=== PATIENT | female | born 1975 | race American Indian/Alaskan Native ===

== ENCOUNTER 2017-04-28 20:49 | Emergency (ER) | payer MEDICAID ==
[2017-04-29] MEDS ORDERED: TYLENOL PO ONE (00:10)
--- NOTE | 2017-04-29 01:56 | XRay Report ---
FINAL REPORT PROCEDURE: XR FOOT 3+V LT TECHNIQUE: Left foot radiographs, AP, lateral, and oblique views. CPT 70499 HISTORY: pain and swelling L foot COMPARISON: No prior studies are available for comparison. FINDINGS: Fracture (s) and/or Dislocation(s): None . Alignment: Normal . Joint space(s): Normal . Soft tissues: There is soft tissue swelling of the forefoot.. Bone mineralization: Normal . Foreign bodies: None . Calcaneal spurring: There is a small inferior calcaneal spur per. IMPRESSION: There is no acute bony abnormality. There is a soft tissue swelling of the forefoot.
[2017-04-29] MEDS ORDERED: NORCO 10/325 PO ONE (03:50)
[2017-04-29] MEDS ORDERED: ZOFRAN ODT PO ONE (03:50)
[2017-04-29 04:21] VITALS: BP 111/41
--- NOTE | 2017-04-29 04:49 | Emergency Department Report ---
ED Lower Extremity HPI - General Chief Complaint: Extremity Injury, Lower Stated Complaint: LT FOOT PAIN Time Seen by Provider: 04/29/17 03:13 Source: patient Mode of arrival: Ambulatory Limitations: No Limitations - History of Present Illness Initial Comments: 41-year-old female past medical history obesity, hypertension presents with complaint of left toe and foot pain. Patient states she stubbed her toe very hard this afternoon. States her left great toe region has become swollen and bruised. Patient has difficulty bearing weight on left foot due to pain. Denies any other injuries. MD Complaint: foot injury (left foot injury) Onset/Timin -: days(s) Injury: Foot: Left, Toes: Left Type of Injury: blunt Place: home Severity: severe Severity scale (0 -10): 8 Worsens With: weight bearing, movement, palpation Context: direct blow, walking Associated Symptoms: able to partially bear weight - Related Data Previous Rx's Medication Instructions Recorded Last Taken Type Butalb/Acetamin/Caff 50-325-40 1 each PO Q4H PRN #10 tablet 10/29/13 Unknown Rx [Fioricet] Acetaminophen/Codeine [Tylenol 1 tab PO Q6H PRN #12 tab 04/29/17 Unknown Rx /Codeine # 3 tab] Ibuprofen [Motrin] 800 mg PO Q8HR PRN #30 tablet 04/29/17 Unknown Rx Allergies Allergy/AdvReac Type Severity Reaction Status Date / Time No Known Allergies Allergy Unverified 10/29/13 09:36 ED Review of Systems ROS: Stated complaint: LT FOOT PAIN Other details as noted in HPI Constitutional: denies: chills, fever Eyes: denies: eye pain, eye discharge, vision change ENT: denies: ear pain, throat pain Respiratory: denies: cough, shortness of breath, wheezing Cardiovascular: denies: chest pain, palpitations Endocrine: no symptoms reported Gastrointestinal: denies: abdominal pain, nausea, diarrhea Genitourinary: denies: urgency, dysuria, discharge Musculoskeletal: as per HPI (left foot and left great toe pain). denies: back pain, joint swelling, arthralgia Skin: denies: rash, lesions Neurological: denies: headache, weakness, paresthesias Psychiatric: denies: anxiety, depression Hematological/Lymphatic: denies: easy bleeding, easy bruising ED Past Medical Hx - Past Medical History Previous Medical History?: Yes Hx Hypertension: Yes Additional medical history: hyperthyroid - Surgical History Past Surgical History?: Yes Additional Surgical History: hysterectomy- partial. x 3. thyroidectomy - Social History Smoking Status: Never Smoker Substance Use Type: None - Medications Home Medications: Home Medications Medication Instructions Recorded Confirmed Last Taken Type Butalb/Acetamin/Caff 50-325-40 1 each PO Q4H PRN #10 tablet 10/29/13 Unknown Rx [Fioricet] Acetaminophen/Codeine [Tylenol 1 tab PO Q6H PRN #12 tab 04/29/17 Unknown Rx /Codeine # 3 tab] Ibuprofen [Motrin] 800 mg PO Q8HR PRN #30 tablet 04/29/17 Unknown Rx ED Physical Exam - General Limitations: No Limitations General appearance: alert, in no apparent distress - Head Head exam: Present: atraumatic, normocephalic - Eye Eye exam: Present: normal appearance, PERRL, EOMI - ENT ENT exam: Present: mucous membranes moist - Neck Neck exam: Present: normal inspection - Respiratory Respiratory exam: Present: normal lung sounds bilaterally. Absent: respiratory distress - Cardiovascular Cardiovascular Exam: Present: regular rate, normal rhythm. Absent: systolic murmur, diastolic murmur, rubs, gallop - GI/Abdominal GI/Abdominal exam: Present: soft, normal bowel sounds - Extremities Exam Extremities exam: Present: normal inspection - Expanded Lower Extremity Exam Left Hip exam: Present: normal inspection, full ROM Upper Leg exam: Present: normal inspection, full ROM Knee exam: Present: normal inspection, full ROM Lower Leg exam: Present: normal inspection, full ROM Ankle exam: Present: normal inspection, full ROM Foot/Toe exam: Present: tenderness (tenderness at base of first metatarsal), swelling, ecchymosis Neuro vascular tendon exam: Present: no vascular compromise (distal dorsalis pedis and posterior tibial pulses strong to palpation) Gait: Positive: antalgic 1 - Pain and swelling here - Back Exam Back exam: Present: normal inspection - Neurological Exam Neurological exam: Present: alert, oriented X3, CN II-XII intact, abnormal gait (antalgic gait secondary to pain) - Psychiatric Psychiatric exam: Present: normal affect, normal mood - Skin Skin exam: Present: warm, dry, intact, normal color. Absent: rash ED Course Vital Signs 04/29/17 04/29/17 04/29/17 00:10 04:07 04:09 Temperature 98.7 F Pulse Rate 89 78 Respiratory 18 18 18 Rate Blood Pressure 128/81 111/41 O2 Sat by Pulse 100 99 Oximetry ED Lower Extremity MDM - Medical Decision Making A/P: Sprain of first metatarsal, foot sprain/toe sprain 1-patient given orthopedic boot left foot for support and crutches 2-motrin when necessary, short course Tylenol 3 when necessary, RICE therapy 3-follow up with podiatry and orthopedics. I emphasized the importance of follow-up to the patient to mitigate any long-term injury or disability 4- neurovascular exam clinically intact with good distal pulses dorsalis pedis and posterior tibial pulses with good capillary refill all digits left foot. Critical care attestation.: If time is entered above; I have spent that time in minutes in the direct care of this critically ill patient, excluding procedure time. ED Disposition Clinical Impression: Sprain of left foot Qualifiers: Encounter type: initial encounter Qualified Code(s): S93.602A - Unspecified sprain of left foot, initial encounter Sprain of great toe of left foot Qualifiers: Encounter type: initial encounter Qualified Code(s): S93.502A - Unspecified sprain of left great toe, initial encounter Contusion of toe of left foot Qualifiers: Encounter type: initial encounter Toe: great toe Damage to nail status: without damage Qualified Code(s): S90.112A - Contusion of left great toe without damage to nail, initial encounter Disposition: DC-01 TO HOME OR SELFCARE Is pt being admited?: No Does the pt Need Aspirin: No Condition: Stable Instructions: Splint Care (ED), Foot Contusion (ED), Arthralgia (ED) Prescriptions: Acetaminophen/Codeine [Tylenol /Codeine # 3 tab] 1 tab PO Q6H PRN #12 tab PRN Reason: Pain Ibuprofen [Motrin] 800 mg PO Q8HR PRN #30 tablet PRN Reason: Pain Referrals: SILVIANO OSUNA [Registered Nurse] - 3-5 Days KAR HOPKINS MD [Staff Physician] - 3-5 Days [facility] [Provider Group] - 3-5 Days Forms: Accompanied Note, Work/School Release Form(ED) Time of Disposition: 06:25
--- NOTE | 2017-04-29 05:23 | Cat Scan Report ---
FINAL REPORT PROCEDURE: CT LOWER EXTREMITY LT WO CON TECHNIQUE: Computerized axial tomography of the LEFT foot was performed without contrast. HISTORY: left foot pain ? 1st metatarsal fracture? swollen COMPARISON: No prior studies are available for comparison. FINDINGS: Bony structures including marrow spaces: Normal. Neurovascular structures: Normal. Soft tissues: There is soft tissue swelling of the forefoot. This is due to subcutaneous edema. There is no mass or abscess. Joint space: Normal. IMPRESSION: There is no acute bony abnormality including fracture or dislocation. There is subcutaneous edema of the forefoot.
== END 2017-04-29 07:01 | disposition home or self-care (01) ==
LOC: ED 20:49
DX: S93.602A Unspecified sprain of left foot, initial encounter (principal); S93.502A Unspecified sprain of left great toe, initial encounter; S90.112A Contusion of left great toe without damage to nail, initial encounter; I10 Essential (primary) hypertension; X58.XXXA Exposure to other specified factors, initial encounter; Y93.89 Activity, other specified; Y92.89 Other specified places as the place of occurrence of the external cause; Y99.8 Other external cause status
CPT/HCPCS: 36415; 84703; Q0162